=== PATIENT | female | born 1945 | race Caucasian/White ===

== ENCOUNTER 2020-06-11 09:03 | Inpatient (IN) | payer OTHER ==
[~2020-06-11] VITALS: Ht 152.4 cm; Wt 73.9 kg
[2020-06-11] VITALS (25 sets, daily range): BP systolic 122–215; BP diastolic 57–138
[2020-06-11 13:41] LABS: HEMATOCRIT 28.1 % (37.0-47.0); HEMOGLOBIN 9.8 gm/dL (12.0-15.0); MCH 31.6 pg (26.0-34.0); MCHC 34.7 g/dL (28.0-37.0); MCV 90.8 fL (80.0-100.0); RBC 3.09 mil/uL (4.20-5.00); RDW 14.4 % (10.5-14.5); WBC 7.5 thou/uL (4.0-11.0)
[2020-06-11] MEDS ORDERED: WARFARIN SODIUM2 MG PO (13:43)
[2020-06-11] MEDS ORDERED: CARVEDILOL12.5 MG PO (13:44)
[2020-06-11] MEDS ORDERED: CLONIDINE HCL0.1 MG PO (13:46)
[2020-06-11] MEDS ORDERED: ROSUVASTATIN CA20 MG PO (13:47)
[2020-06-11] MEDS ORDERED: IRON325 PO (13:49)
[2020-06-11 13:55] LABS: INR 1.43; PROTIME 15.3 Seconds (9.3-11.4)
[2020-06-11 13:56] LABS: ALBUMIN 2.2 g/dL (3.4-5.0); CALCIUM 7.6 mg/dL (8.5-10.1); CREATININE 1.1 mg/dL (0.6-1.0); POTASSIUM 3.3 mmol/L (3.5-5.1); TOTAL BILIRUBIN 0.6 mg/dL (0.2-1.0)
--- NOTE | 2020-06-11 15:20 | NUR ---
PATIENT ADMIT AT 1145 VIA EMS FROM [facility]. LARGE BLOODY STOOL ON ARRIVIAL. NO WOUNDS PRESENT ON ADMISSION. NO BELONGINGS BROUGHT WITH PATIENT. PATIENT ALERT AND ORIENTED. FAMILY AT BEDSIDE. SURGERY AND GI CONSULTED AND AT BEDSIDE. PATIENT CONTINUING TO HAVE FREQUENT BLOODY STOOLS. PLANNING FOR EDG TODAY. PATIENT HYPERTENSIVE THROUGHOUT SHIFT. PRN MEDICATIONS GIVEN WITH IMPROVEMNT IN BLOOD PRESSURE.
[2020-06-11 19:42] LABS: HEMATOCRIT 23.6 % (37.0-47.0); HEMOGLOBIN 8.2 gm/dL (12.0-15.0)
[2020-06-12] VITALS (37 sets, daily range): BP systolic 72–150; BP diastolic 42–105
--- NOTE | 2020-06-12 05:46 | NUR ---
ASSESSMENT DOCUMENTED.PT BEEN RESTING IN NO ACUTE DISTRESS.A/OX4.VSS.ON RA W/O RESP DISTRESS.PT S/P COLONOSCOPY.PT WAS UNABLE TO VOID EVEN AFTER A COUPLE OF TRIALS TO SIT ON A BSC.BLADDER SCAN PER PROTOCOL,690CC OF URINE SHOWED ON BLADDER SCAN.CELLULAR BIOLOGIST NOTIFIED,ORDERS GIVEN TO INSERT AND CONTINUE W/FONTANEZ CATHETER, 625CC OF LIGHT YELLOW URINE OBTAINED UPON FONTANEZ INSERTION.PT TOLERATED THE PROCEDURE.PT HAD X2 SMALL AMOUNT OF BLOODY STOOL WITH COPIOUS AMOUNT OF CLOTS.PT DENIES PAIN OR ANY OTHER DISCOMFORT AT THIS TIME.PT TOLERATING CLEAR LIQUID DIET.NS INFUSING PER ORDERS.
[2020-06-12 06:42] LABS: BASOPHILS 0.9 % (0.0-2.0); HEMOGLOBIN 6.7 gm/dL (12.0-15.0)
[2020-06-12 06:45] LABS: ABSOLUTE NEUTROPHILS 5.3 thou/uL (1.4-8.2); EOSINOPHILS 4.7 % (0.0-3.0); LYMPHOCYTES 18.5 % (24.0-44.0); MCH 31.9 pg (26.0-34.0); MCV 91.3 fL (80.0-100.0); MONOCYTES 7.6 % (1.0-8.0); PLATELET COUNT 153 thou/uL (150-400); POLYS 68.3 % (36.0-66.0); RDW 14.1 % (10.5-14.5); WBC 7.7 thou/uL (4.0-11.0)
[2020-06-12 06:50] LABS: HEMATOCRIT 19.2 % (37.0-47.0)
[2020-06-12 06:55] LABS: CALCIUM 7.4 mg/dL (8.5-10.1)
[2020-06-12 06:58] LABS: POTASSIUM 2.8 mmol/L (3.5-5.1)
[2020-06-12 07:49] LABS: ANISOCYTOSIS 1+; PLATELET ESTIMATE NORMAL
--- NOTE | 2020-06-12 08:47 | NUR ---
ASSUMED CARE OF PT AT 0700. PT SLEEPING EASILY AROUSABLE. ALERT AND ORIENTED TO PERSON, PLACE AND SITUATION. DR SHELDON PAGED AT 726, 744 THEN CRYPTO TEXTED BY MANAGER QUANTITATIVE REGARDING LOW HGB, ELECTROLITE IMBALANCES AND NEED FOR BETTER IV ACCESS. ORDERS GIVEN AT THAT TIME. WILL CONTINUE TO MONITOR.
--- NOTE | 2020-06-12 11:04 | NUR ---
VAT CONSULTED FOR PICC LINE. DISCUSSED BENEFITS AND RISKS WITH PT, VERBALIZED UNDERSTANDING. PT'S LABS,HX,ORDER AND CONSENT VERIFIED. OMI WHITEHEADCHEL WAS WIDELY PATENET WITH USG. 5FR TL POWER PICC TRIMMED TO 39CM INAERTED TO 0CM WITH PEAKED P-WAVES ON 3CG FOR CONFIRMATION. PICC RELEASED FOR IMMEDIATE USE PER PROTOCOL TO BETY SERRANO. PT TOLERATED WELL
--- NOTE | 2020-06-12 12:17 | NUR ---
ASSUMED CARE OF PT AT 0700. PT ALERT AND ORIENTED X4. PER PREVIOUS SHIFT RN PT HAD A TOTAL OF 3 DARK RED STOOLS. DURING THE NIGHT. DR SHELDON WAS PAGED AT [address] SHELDON WAS MESSAGED BY CRIPTO TEXT. ORDERS FOR A PRBCs, CENTRAL LINE, AND ELECTROLYTE REPLACEMENT WERE GIVEN. DR SHELDON ALSO ORDERED A GI NUC/MED STUDY FOR THE BLEEDING. STUDY WAS NOT PERFORMED DR CHAVEZ CAME TO TALK TO PT OF DOING A SUBTOTAL COLECTOMY AT 1130. PT WAS TAKEN TO OR AT 1200.
--- NOTE | 2020-06-12 22:06 | NUR ---
PT A/OX4.VSS.PT ASSISTED UP TO THE CHAIR ,S/P SUBTOTAL COLECTOMY W/NEW ILEOSTOMY.PT REPORTS MODERATE DISTRESS/PAIN FROM THE SURGICAL SITE THAT IS CONTROLLED WITH PAIN MEDS PER ORDERS.DENIES NAUSEA.DENIES PASSING GAS.TOLERATING ICE CHIPS.SURGICAL INCISION DRESSING CDI.ILEOSTOMY WITH MILD SEROSANGUIOUS DRAINAGE.FONTANEZ DD.NO FURTHER CONCERNS VOICED AT THIS TIME.
[2020-06-13] VITALS (24 sets, daily range): BP systolic 76–147; BP diastolic 45–76
[2020-06-13 08:43] LABS: HEMATOCRIT 24.7 % (37.0-47.0); HEMOGLOBIN 8.3 gm/dL (12.0-15.0); MCHC 33.5 g/dL (28.0-37.0); MCV 92.4 fL (80.0-100.0); RBC 2.67 mil/uL (4.20-5.00); RDW 15.1 % (10.5-14.5)
[2020-06-13 08:49] LABS: CALCIUM 7.6 mg/dL (8.5-10.1); CREATININE 1.7 mg/dL (0.6-1.0); POTASSIUM 4.9 mmol/L (3.5-5.1)
--- NOTE | 2020-06-13 09:02 | NUR ---
ASSUMED CARE OF PT AT 0700, PT IS ONLY COMPLAINING OF PAIN WHEN SHE MOVES. SHE STATES THAT OVERALL SHE IS FEELING BETTER. GI DOC WAS AT BEDSIDE PER PATIENT AND TOLD HER NOT TO EAT OR DRINK AND TO ONLY HAVE WATER UNTIL SURGERY CLEARS HER TO EAT. IT WAS SURGERY THAT PUT IN THE DIETARY ORDER SO WE WILL CHECK WITH THEM WHEN THEY ROUND.
--- NOTE | 2020-06-13 09:39 | NUR ---
PAGED DR. CHAVEZ TO SEE IF PT CAN EAT AND SEE IF SHE CAN MOVE OUT OF THE UNIT. CALL PLACED AT [phone]
--- NOTE | 2020-06-13 15:43 | NUR ---
ASSUMED CARE OF PATIENT UPON TRANSFER TO UNIT. FAMILY AT BEDSIDE. PATIENT WITH A PICC LINE IN THE RIGHT UPPER ARM. RIGHT UPPER ARM NOTED TO BE SWOLLEN AND RED, WITH BRUISING NOTED THROUGHOUT THE ENTIRE ARM. PHYSICIAN NOTIFIED, ULTRASOUND ORDERED. HOLDING IV FLUIDS AT THIS TIME UNTIL ULTRASOUND RESULTS. PATIENT WITH A FONTANEZ CATHETER AND A ILEOSTOMY.
--- NOTE | 2020-06-14 06:00 | NUR ---
Pt. rested quietly at intervals during the night when checked on during frequent rounds. Zofran ivp given for c/o nausea with little relief (see emar). Eleazar CLERICAL CLERK called during the shift and new order for compazine (see CPOE). Compazine given (see emar) with relief of nausea. Left arm bruised and swollen and elevated up on pillow. No return call from the iv team this shift and day nurse to call. Ileostomy has small amount of liquid dark brown stool present. Pt. offers no c/o pain. Bed alarm is on.
[2020-06-14 09:00] VITALS: BP 178/70
[2020-06-14 10:47] LABS: HEMATOCRIT 22.3 % (37.0-47.0); HEMOGLOBIN 7.5 gm/dL (12.0-15.0); MCH 31.4 pg (26.0-34.0); MCHC 33.6 g/dL (28.0-37.0); MCV 93.5 fL (80.0-100.0); RBC 2.39 mil/uL (4.20-5.00); RDW 15.9 % (10.5-14.5); WBC 11.3 thou/uL (4.0-11.0)
[2020-06-14 11:02] LABS: CALCIUM 7.9 mg/dL (8.5-10.1); CREATININE 1.9 mg/dL (0.6-1.0); POTASSIUM 4.8 mmol/L (3.5-5.1)
--- NOTE | 2020-06-14 14:30 | NUR ---
PT ADMITTED RELATED TO GI BLEED. CM REVIEWED CHART AND SPOKE WITH CARE TEAM. CM MET WITH PT AT BEDSIDE THIS DAY. PT INDICATED THAT SHE RESIDES IN A [facility]. 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 PT INDICATED THAT HE PCP IS DR. JOLYNN ALVAREZ AT [facility]. PT INDICATED NO HH OR SKILLED HX. PT INDICATED SHE PLANS TO RETURN HOME ONCE MEDICALLY STABLE. CM TO FOLLOW INDICATED WITH DC PLANNING. PT HAD SUBTOTAL COLECTOMY AND HAS NEW OSTOMY. PT INDICATED SHE WANTS TO LEARN TO MANAGE IT AND FEELS CONFIDENT THAT SHE CAN DO SO. CM FOLLOWING REGARDING DC NEEDS.
[2020-06-14 15:32] VITALS: BP 107/66
--- NOTE | 2020-06-14 15:51 | NUR ---
ASSUMED CARE AT 0700 THIS MORNING. PT WAS ADMITTED FOR GI BLEED. PT IS A/OX4 AND STATED SHE IS FEELING BETTER, SKIN W/D/P AND INTACT. NO TENTING NOTED, CR<3SEC, LUNGS CLEAR ALL LYMAN, DISTAL PULSES 2+ X4, ABD SOFT NONTENDER, IV IN LEFT WRIST. PT HAS A PICC BUT HAD A DVT AND UNUSABLE. PAGED IV TEAM TO SEE IF IT CAN BE PATENT AGAIN, ASSESSMENT OTHERWISE UNREMARKABLE. CALL LIGHT AND OTHER NEEDS PLACED WITHIN REACH.
[2020-06-14 15:58] LABS: INR 1.62; PROTIME 17.3 Seconds (9.3-11.4)
[2020-06-15 01:39] LABS: HEMOGLOBIN 6.5 gm/dL (12.0-15.0)
[2020-06-15 01:42] LABS: HEMATOCRIT 19.3 % (37.0-47.0)
[2020-06-15 01:46] LABS: CALCIUM 7.8 mg/dL (8.5-10.1); CREATININE 1.6 mg/dL (0.6-1.0); POTASSIUM 4.1 mmol/L (3.5-5.1)
--- NOTE | 2020-06-15 04:55 | NUR ---
Pt. rested quietly at intervals during the night when checked on during frequent rounds. She c/o abdominal pain and ivp pain med given (see emar) with some relief noted. Bed alarm is on.
[2020-06-15 08:00] VITALS: BP 149/88
[2020-06-15 11:26] VITALS: BP 177/98; BP 178/104
[2020-06-15 13:00] VITALS: BP 159/103
--- NOTE | 2020-06-15 14:48 | NUR ---
PT GETTING BLOOD TODAY PT VARIENCED. AWAITING THERAPY EVALS. PT HAD INDICATED DESIRE TO RETURN TO HER [facility] ONCE MEDICALLY STABLE. CM FOLLOWING REGARDING DC PLANNING NEEDS.
--- NOTE | 2020-06-15 17:07 | PATH ---
[facility] [place] [address] PATHOLOGY RPT PROCEDURE Name: SHADI WRIGHT Room #: 464-P ADM IN M.R.#: [id number] Admission: 06/11/20 Date of : 43 Discharge: Report #: [id number] Path Case #: [id number] [facility] Accession Number: [id number] . 01 Material submitted: . colon - SUBTOTAL COLECTOMY . 01 Clinical history: . DIVERTICUALR BLEED . 02 Diagnosis: Terminal ileum and large intestine, subtotal colectomy: - INVASIVE MODERATELY-DIFFERENTIATED COLONIC ADENOCARCINOMA, MEASURING 2.0 CM IN GREATEST DIMENSION AND INVADING INTO MUSCULARIS PROPRIA. - Multiple tubular adenomas present within the background; negative for high grade dysplasia. - Multiple hyperplastic polyps; negative for dysplasia. - Ischemic colitis forming a stricture measuring 1.5 cm in greatest dimension and within 5.0 cm of distal margin. - Extensive diverticulosis as well as diverticulitis. - 14 reactive lymph nodes; negative for malignancy (0/14). . (IUV:mml; 06/15/2020) . . . Surgical Pathology Cancer Case Summary . Protocol posting date: March 2019 . COLON AND RECTUM: Resection, Including Transanal Disk Excision of Rectal Neoplasms . Procedure ___ Subtotal colectomy . Tumor Site ___ Descending colon . Tumor Size Greatest dimension (centimeters): 2.0 cm . Macroscopic Tumor Perforation ___ Not identified . Histologic Type ___ Adenocarcinoma . [facility] [address] [place] [address] PATHOLOGY RPT PROCEDURE Name: SHADI WRIGHT Room #: 464-P ADM IN M.R.#: [id number] Admission: 06/11/20 Date of : 43 Discharge: Report #: [id number] Path Case #: [id number] Histologic Grade ___ G2: Moderately differentiated . Tumor Extension ___ Tumor invades muscularis propria . Margins ___ All margins are uninvolved by invasive carcinoma, high-grade dysplasia, intramucosal adenocarcinoma, and adenoma Margins examined: Proximal, Distal and Mesenteric Distance of invasive carcinoma from closest margin: 1.3 cm Specify closest margin: Distal mucosal margin . Treatment Effect ___ No known presurgical therapy . Lymphovascular Invasion ___ Not identified . Perineural Invasion ___ Not identified . Tumor Deposits ___ Not identified . Regional Lymph Nodes . Number of Lymph Nodes Involved: 0 . Number of Lymph Nodes Examined: 14 . Pathologic Stage Classification (pTNM, AJCC 8th Edition) Note: Reporting of pT, pN, and (when applicable) pM categories is based on information available to the pathologist at the time the report is issued. . . Primary Tumor (pT) ___ pT2: Tumor invades the muscularis propria . Regional Lymph Nodes (pN) ___ pN0: No regional lymph node metastasis . Distant Metastasis (pM) (required only if confirmed pathologically in this case) ___ pMx: Not known . Additional Pathologic Findings ___ Adenoma(s) [facility] [address] [place] [address] PATHOLOGY RPT PROCEDURE Name: SHADI WRIGHT Room #: 464-P [facility] IN .R.#: [id number] Admission: 06/11/20 Date of : 43 Discharge: Report #: [id number] Path Case #: [id number] ___ Diverticulosis QTP 06/15/2020 1556 Local . 02 Comment: The findings of this case are conveyed to Dr. Robinson Brantley at approximately 3:11 p.m. on 06/15/2020. . (IUV:mml; 06/15/2020) . 02 Electronically signed: . Nadira Kirby MD, Pathologist NPI- [id number] . 01 Gross description: . The specimen is received in formalin, labeled "subtotal colectomy" and consist of an extended right hemicolectomy specimen received as terminal ileum, cecum without appendix, ascending colon, transverse colon and possible proximal sigmoid. The specimen is remarkable for areas of dilatation and stricture with blood clot filling the lumen. In addition, the large bowel has alternate areas of polypoid masses and outpouchings consistent with diverticula. The largest polypoid masses are distal corresponding to Black ink on the serosa. Perforations or ruptured diverticula are not observed The colon measures 11 cm from ileal margin to ileocecal valve, 30 cm from ileocecal valve to proximal transverse colon and 75 cm from proximal transverse colon to distal margin. The circumferences are as follows: 3 cm at terminal ileum, 5 cm at ileocecal valve, 8.5 cm at cecum, 7 cm at ascending/transverse colons and 4.5 cm at distal margin. Proximal and distal margins are inked black. The radial soft tissue margin corresponding to the two (2) largest polypoid masses is inked yellow. The corresponding radial soft margin to the two largest lesions, 5 cm away, is shaved and submitted in cassette A3. There are multiple palpable masses, ranging from 0.3 to 2 cm located in the large bowel. The two largest masses come to within 1.3 cm and 5 cm of the distal margin. Each mass grossly distorts the muscularis layer without extension into the pericolic fat. With relationship to the proximal ileal margin, the smaller masses are noted within 13 cm. The mucosa of the terminal ileum, ileocecal valve and cecum is focally congested without diverticula, perforations or lesions. The wall thickness away from the masses is within normal limits. Multiple soft pink-zambrano possible lymph nodes ranging from 0.3-0.7 cm are identified. Packing Line Operator sections are submitted in 25 cassettes as follows: A1 Terminal ileal margin, perpendicular section A2 Distal margin, perpendicular section [address] [address] PATHOLOGY RPT PROCEDURE Name: SHADI WRIGHT Room #: 464-P ADM IN M.R.#: [id number] Admission: 06/11/20 Date of : 43 Discharge: Report #: [id number] Path Case #: [id number] A3 Shaved radial soft tissue margin A4 Ileum and ICV A5 Cecum A6-A9 Entire Mass within 1.3cm of the distal margin (2 cm maximum dimension) A10-A13 Entire Mass within 5 cm of the distal margin (1.5 cm maximum dimension) A14-A17 Additional smaller masses, diverticula A18-A25 Lymph nodes CHAIM/CHAIM 06/14/2020 1934 Local . 02 Pathologist provided ICD-10: C18.6, D12.4, K63.5, K52.9, K57.90, K57.92 . 02 CPT . 418463 Specimen Comment: A courtesy copy of this report has been sent to [phone] Specimen Comment: Report sent to Performed at: [address] [facility], [place] [id number] MD Ike Santana MD Phone: [phone] Performed at: [address] [facility] [id number] MD Nadira Kirby MD Phone: [phone]
[2020-06-15 19:00] LABS: HEMATOCRIT 31.7 % (37.0-47.0); HEMOGLOBIN 10.8 gm/dL (12.0-15.0)
--- NOTE | 2020-06-15 19:17 | NUR ---
Assumed pt care at 7am.Assessment completed.vss but elevated bp noted.Am meds given as ordered and well tolerated.Dr Abrams and Abhijeet here order noted. 1 unit prbc given today. Picc line dc'd and piv placed by iv team.Medicated pt with both pain and antinausea med as requested by pt with releif.Family here to visit updates given.Fall bundle in place.Report off to fariba mondragon.
[2020-06-15 19:45] VITALS: BP 152/94
[2020-06-16 05:54] LABS: ALBUMIN 1.7 g/dL (3.4-5.0); CALCIUM 7.3 mg/dL (8.5-10.1); CREATININE 1.4 mg/dL (0.6-1.0); PHOSPHORUS 3.7 mg/dL (2.5-4.9); POTASSIUM 3.9 mmol/L (3.5-5.1)
[2020-06-16 07:41] VITALS: BP 152/78
--- NOTE | 2020-06-16 08:10 | NUR ---
Pt. c/o nausea, but no emesis. She has been given antinausea meds (see emar) with some relief noted. Bed alarm is on.
--- NOTE | 2020-06-16 09:12 | NUR ---
OSTOMY CARE; AWAKE, ALERT, VERY PLEASANT, POUCH INTACT, NO LEAKAGE, LOOSE BILISH STOOL NOTED, QUESTIONS ANSWERED REGARDING OSTOMY CARE/MANAGEMENT, VERY RECEPTIVE TO EDUCATION, STOMA PINKISH RED VIABLE BUDDED, INFO AND SUPPLIES LEFT AT BS, ENCOURAGED TO PARTICIPATE IN OSTOMY CARE, WILL CONT TO FOLLOW RECOMMENDATIONS; RADHA 2 PIECE APPLIANCE, CHANGE Q 3-5 DAYS AND PRN, EMPTY PRN DIALYSIS NURSE AWARE
[2020-06-16 15:15] VITALS: BP 127/48
--- NOTE | 2020-06-16 16:40 | NUR ---
CM PROVIDED PT WITH SNF LIST FOR REVIEW FOR POST ACUTE CARE STAY.
--- NOTE | 2020-06-16 16:51 | NUR ---
ASSUMED PT CARE AROUND 0715. PT ALERT X ORIENTED X 4 ON ROOM AIR. IV LF UA, SALINE LOCKED.HAS ILEOSTOMY AND FONTANEZ CATHETER.UP WITH 1 X PERSON ASSIST. PT HAS A MIDLINE INCISSION WITH MART. TELE PT WITH SINUS RYTHM. FALL PRECAUTION IN PLACE. CALL LIGHT IN REACH. WILL CALL APPROP. WILL CONTINUE TO MONITOR. STRICT I &O MONITOR.
[2020-06-16 20:09] VITALS: BP 145/73
--- NOTE | 2020-06-17 03:18 | NUR ---
ASSESSED AT START OF SHIFT, PT A&OX4 EVENING MEDS GIVEN AND PT JOSE ALFREDO IT WELL. IV INTACT AND ABX INFUSING. ILEOSTOMY INTACT AND WITH GREEN COLOR OUTPUT. BAG CHANGED AND CARE PROVIDED. STRICT I &O ON ILEOSTOMY Q4 HRS. PT ON RA SATS GOOD. TYELENOL GIVEN FOR PAIN. ABD INCISION INTACT DRESSING CAHNGED. PT DENIES N/V. FALL PREC IN PLACE AND CALL LIGHT AT REACH WILL CONT TO MONITOR.
[2020-06-17 08:25] VITALS: BP 134/69
[2020-06-17 11:26] LABS: HEMATOCRIT 26.9 % (37.0-47.0); HEMOGLOBIN 9.2 gm/dL (12.0-15.0); MCH 31.4 pg (26.0-34.0); MCHC 34.3 g/dL (28.0-37.0); MCV 91.5 fL (80.0-100.0); RBC 2.93 mil/uL (4.20-5.00); RDW 15.2 % (10.5-14.5); WBC 6.5 thou/uL (4.0-11.0)
[2020-06-17 11:39] LABS: ALBUMIN 1.7 g/dL (3.4-5.0); CALCIUM 7.8 mg/dL (8.5-10.1); CREATININE 1.6 mg/dL (0.6-1.0); PHOSPHORUS 3.2 mg/dL (2.5-4.9); POTASSIUM 3.3 mmol/L (3.5-5.1)
--- NOTE | 2020-06-17 16:23 | NUR ---
TORO MET WITH PT THIS DAM. SHE [facility]. REFERRAL SENT. CM SPOKE WITH FACILITY AND THEY ARE CRUZ TO ACCEPT AND WILL SUBMIT FOR [employer] AUTH THIS EVENING. CM SENT EMAIL WELL. CM FOLLOWING REGARDING DC PLANNING.
[2020-06-17 16:25] VITALS: BP 140/65
--- NOTE | 2020-06-17 17:44 | NUR ---
PT CARE ASSUMED AT 0700. ASSESSMENTS CHARTED. MEDICATIONS CHARTED. DREW IV. SINUS RHYTHM. ILEOSTOMY. FONTANEZ. SCHEDULED TYLENOL. ABD SURGICAL SITE. COVID TAKEN AND IN LAB PRIOR TO 1400. I/O Q4.
[2020-06-17 21:13] VITALS: BP 140/104
--- NOTE | 2020-06-18 02:48 | NUR ---
ASSUMED CARE OF PT AT SHIFT CHANGE. PT IS AOX4 AND LETS NEEDS BE KNOWN. FALL PRECAUTION IN PLACE. PT DENIED PAIN, NAUSE OR SOA. ILEOSTOMY HAS FAIR AMOUNT OF OUTPUT. SURGICAL DRESSING IS C/D/I. ASSESSMENT CHARTED. PT RUNS SR ON TELE. PT WAS ABLE TO GET COMFORTABLE AND SLEEP PART OF THE SHIFT. VSS AND NO S/S OF ACUTE DISTRESS. WILL CONTINUE TO MONITOR.
[2020-06-18 07:51] LABS: HEMOGLOBIN 8.9 gm/dL (12.0-15.0); MCH 31.2 pg (26.0-34.0); MCHC 34.1 g/dL (28.0-37.0); MCV 91.5 fL (80.0-100.0); RBC 2.84 mil/uL (4.20-5.00); RDW 15.3 % (10.5-14.5); WBC 5.2 thou/uL (4.0-11.0)
[2020-06-18 07:57] LABS: ALBUMIN 1.8 g/dL (3.4-5.0); CREATININE 1.5 mg/dL (0.6-1.0); PHOSPHORUS 2.9 mg/dL (2.6-4.7); POTASSIUM 3.3 mmol/L (3.5-5.1)
[2020-06-18 08:14] VITALS: BP 152/80
--- NOTE | 2020-06-18 09:06 | NUR ---
OSTOMY CARE; AWAKE, ALERT, COOPERATIVE, VERY PLEASANT, POUCH CHANGED USING 2 PIECE RADHA CUT TO FIT APPLIANCE, STOMA PINK VIABLE BUDDED W/ LIQ BILISH STOOL, PERISTOMAL SKIN INTACT, VERY RECEPTIVE TO OSTOMY EDUCATION, ENCOURAGED TO PARTICIPATE IN OSTOMY CARE, SUPPLIES AND INFO AT BS, SECURE START KIT ORDERED FOR PT AND TO BE SENT TO HOME, WILL CONT TO FOLLOW RECOMMENDATIONS; CHANGE POUCH Q 3-5 DAYS AND PRN, EMPTY PRN PORT STEWARD AWARE
--- NOTE | 2020-06-18 09:13 | NUR ---
WOUND CARE; AWAKE, ALERT, COOPERATIVE, MID LINE ABD INCISION INTACT, WELL APPROXIMATED, MART PRESENT, DRSG CHANGED WHEN OSTOMY POUCH CHANGED USING ISLAND TELFA DRSG, NO S/S INFECTION, NO DRAINAGE, HEALING BURR FILER AWARE
[2020-06-18 11:52] VITALS: BP 183/95
--- NOTE | 2020-06-18 15:51 | NUR ---
AWAITING AUTH FOR PT TO DC TO [facility]. IF AUTH RECEIVED CALL FAX .
[2020-06-18 16:31] VITALS: BP 142/73
[2020-06-18 19:51] VITALS: BP 140/70
--- NOTE | 2020-06-18 20:02 | NUR ---
Assumed pt care this am, VS stabel. Ostomy care done by ostomy nurse, bag drained several times though out the shift to educate the pt on ostomy care. FC in place drainig yellow urine. Diet and medications are tolerated well. poc followed with no signs or verbalizations of distress noted. Strict I & O documented. Endorsed to the night nurse.
--- NOTE | 2020-06-19 03:19 | NUR ---
ASSUMED CARE OF PT AT 1900. PT IS A/O X4 AND IS PLEASANT AND COOPERATIVE. GETS UP WITH ASSISTANCE USING WALKER AND GB. ROOM AIR. SR ON THE MONITOR. COLOSTOMY IN PLACE DRAINING GREEN LIQUID STOOL. PT HELPED WITH EMPTYING. STATED SHE WAS HAPPY TO LEARN HOW. FONTANEZ IN PLACE AND DRAINING YELLOW URINE. MIDLINE INCISION DRSNG IS C/D/I. RIGHT ARM IS NOTED TO HAVE EDEMA/AND BRUISING. ELEVATED ON PILLOW. FALL PRECAUTIONS IN PLACE, CALL LIGHT IS WITHIN REACH. CALLS OUT APPROPRIATELY.
[2020-06-19 07:04] VITALS: BP 172/85
[2020-06-19 10:01] VITALS: BP 119/71
--- NOTE | 2020-06-19 12:14 | NUR ---
Received awake on bed. Due medications given as prescribed, able to swallow meds w/o difficulty. On room air. Vital signs stable. On telemetry; no complains and signs of chest pain, crushing sensation and heaviness. Assisted in ADLs. On regular diet- tolerating well; no nausea, no vomiting and no abdominal pain noted. With colostomy in place- output measured and recorded accordingly; health teaching given re: colostomy care at home. With flowers in place- draining well; output measured and recorded accordingly- with orders to d/c from Dr Abrams- pt informed. With abdominal midline incsion- dressing C/D/I. With L UA- SL. R FA still edematous- kept elevated. Still a/w insurance authorization for placement. To continue monitoring patient. No complains of pain made during assessment.
[2020-06-19 15:49] VITALS: BP 147/78
[2020-06-19 20:52] VITALS: BP 143/83
--- NOTE | 2020-06-20 04:51 | NUR ---
Assumed pt care at 1900. A/OX4,very pleasant. VSS.Denies pain on assessment. Up with AX1,RW/GB. Voiding w/o problems, Ileostomy in placce with dark green moderate output. Mid abd incision intact with lolis covered in [facility] dsg. Redness/edema noted on right arm r/t DVR,elevated on a pillow. SR on telemetry. Fall precautions in place,reminded to call before getting out of the bed and does so. Will continue to monitor pt.
[2020-06-20 05:09] LABS: CALCIUM 8.2 mg/dL (8.5-10.1); CREATININE 1.1 mg/dL (0.6-1.0); MAGNESIUM 1.7 mg/dL (1.8-2.4); POTASSIUM 3.1 mmol/L (3.5-5.1)
[2020-06-20 07:16] VITALS: BP 154/80
--- NOTE | 2020-06-20 14:10 | NUR ---
ASSUMED PT CARE THIS AM. PT IS ALERT & ORIENTED X4. PT HAS IV SITE ON L UA SALINE LOCKED. PT HAS ILEOSTOMY ON RLQ. PT NO C/O OF PAIN, NAUSEA AND VOMITING. PT TOLERATED MED WELL. PT ON THE BED, BED ON THE LOWEST POSITION, SIDE RAILS UP, CALL LIGHT WITHIN REACH. WILL CONTINUE TO MONITOR PT. FOLLOW POC.
[2020-06-20 17:10] VITALS: BP 151/92
[2020-06-20 19:51] VITALS: BP 130/54
--- NOTE | 2020-06-21 02:02 | NUR ---
ASSUMED CARE OF PT AT SHIFT CHANGE. PT IS AOX4 AND LETS NEEDS BE KNOWN. FALL PRECAUTION IN PLACE. PT DENIED PAIN, NAUSEA OR SOA. ASSESSMENT CHARTED. ABDOMINAL MIDLINE DRESING IS C/D/I. ILEOSTOMY IS DRAINING ADEQUATELY. PT TOOK ALL MEDS WHOLE WITH WATER. PT RAN SR ON TELE. PT WAS ABLE TO GET COMFORTABLE AND SLEEP PART OF THE SHIFT. VSS AND NO S/S OF ACUTE DISTRESS. WILL CONTINUE TO MONITOR FOR CHANGES.
[2020-06-21 05:37] LABS: HEMATOCRIT 26.3 % (37.0-47.0); HEMOGLOBIN 8.9 gm/dL (12.0-15.0); MCH 30.9 pg (26.0-34.0); MCHC 33.8 g/dL (28.0-37.0); MCV 91.3 fL (80.0-100.0); RBC 2.88 mil/uL (4.20-5.00); RDW 15.8 % (10.5-14.5); WBC 5.1 thou/uL (4.0-11.0)
[2020-06-21 05:44] LABS: CALCIUM 8.2 mg/dL (8.5-10.1); CREATININE 1.1 mg/dL (0.6-1.0); POTASSIUM 3.6 mmol/L (3.5-5.1)
[2020-06-21 07:50] VITALS: BP 142/94
--- NOTE | 2020-06-21 08:57 | NUR ---
OSTOMY/WOUND CARE; AWAKE, ALERT, COOPERATIVE, VERY PLEASANT, POUCH CHANGED USING 2 PIECE SYSTEM RADHA CUT TO FIT, STOMA RED, VIABLE, BUDDED W/ LOOSE BROWNISH GREEN STOOL, PERISTOMAL SKIN INTACT, VERY RECEPTIVE TO EDUCATION, ABLE TO EMPTY POUCH W/ SOME ASSIST, NEEDS ASSIST W/ CUTTING WAFER AND APPLYING POUCH, MID LINE ABD INCISION INTACT, HEALING, MART REMAIN, NO S/S INFECTION, [facility] DRSG REAPPLIED, SUPPLIES AND INFO AT BS, WILL CONT TO FOLLOW RECOMMENDATIONS; CHANGE POUCH Q 3-5 DAYS AND PRN, EMTPY PRN, CONSULT SURGEON REGARDING STAPLE REMOVAL RAIL TRACK LAYER AWARE
[2020-06-21 11:43] VITALS: BP 142/94
--- NOTE | 2020-06-21 11:47 | NUR ---
CARE TEAM INDICATED THAT PT IS MEDICALLY STABLE TO DC HOME THIS DAY WITH SERVICES. PT IS AWARE AND AGREEABLE THAT SHE NO LONGER NEEDS SKILLED POST ACUTE CARE STAY [facility]. PT INDICATED NO PREFERANCE FOR HH PROVIDER. REFERRAL SENT TO [facility]. THEY CAN ACCEPT PT UPON DC. ORDERS TO BE FAXED. PT'S SON TO PROVIDE TRANSPORT HOME THIS DAY. NO OTHER CM INTERVETNION INDICATED. CASE CLOSED.
--- NOTE | 2020-06-21 12:32 | NUR ---
Assumed pt care this am, Vs stable. Pt was able to walk the halls with PT. Ileostomy on the RLQ, draininh greenisg liquid. Diet and medications are well tolerated. Mid line incision c/d/i. Bruising on upper extremities present. POC followed with no signs or verbalizations of disttress noted. DC instructions given to the pt, awaiting for son for flower picker.
--- NOTE | 2020-07-01 08:42 | O ---
[facility] [place] [address] OPERATIVE REPORT Name: SHADI WRIGHT Room #: 464-P [facility] IN M.R.#: [id number] Admission: 06/11/20 Attend Phys: James Dickinson MD Discharge: 06/21/20 Date of : 43 Report #: [id number] THIS REPORT FOR: cc: FAM - Family physician unknown FAM - Family physician unknown Robinson Brantley MD ~ DATE OF SERVICE: 06/12/2020 PREOPERATIVE DIAGNOSIS: Diverticular bleed. POSTOPERATIVE DIAGNOSIS: Diverticular bleed. OPERATION: Subtotal colectomy with end ileostomy. SURGEON: Robinson Brantley MD ANESTHESIA: General. ESTIMATED BLOOD LOSS: Minimal. SPECIMEN: Subtotal colectomy. DESCRIPTION OF PROCEDURE: After informed consent was obtained, the patient was brought to the operating room and placed supine. SCDs were placed and working, preoperative antibiotics were administered, general anesthesia was induced. A Ferreira catheter was placed. The abdomen was prepped and draped in the usual sterile fashion. Midline laparotomy incision was made from approximately 2 cm above the umbilicus down to the pubis. The fascia was incised in the midline and a self-retaining retractor was placed. I examined the abdomen. The small bowel appeared normal. The colon was then examined. I first examined the sigmoid colon. It was grasped and retracted medially. The white line of Toldt was incised and this allowed for medial mobilization of the sigmoid and left colon. I then began by dissecting away the left colon all the way up to the splenic flexure. The splenocolic ligament was incised with electrocautery and LigaSure device. The splenic flexure was mobilized by incising the splenocolic ligament and mobilizing the splenic flexure medially. I then went to the right colon. The terminal ileum was then transected approximately 10 cm from the cecum. Again, the colon was grasped and retracted medially and the white line of Toldt was incised. The lateral attachments to the right colon were then taken down up to the hepatic flexure. I then ligated the mesentery of the transverse colon using the LigaSure device. The gastrocolic omentum was incised with the LigaSure device as well. Branches of the middle colic and right colic artery were ligated using the LigaSure and small bleeding vessels were tied off with 3-0 silk suture. I then was able to mobilize the colon all the way to the sigmoid after the mesentery had been ligated. I stayed in the midline and the [address] [address] OPERATIVE REPORT Name: SHADI WRIGHT Room #: 464-P [facility] IN M.R.#: [id number] Admission: 06/11/20 Attend Phys: James Dickinson MD Discharge: 06/21/20 Date of : 43 Report #: [id number] superior hemorrhoidal vessels were ligated using 3-0 silk sutures in a [id number] fashion to tie off the vessels. Dissection was undertaken and I could see the proximal and distal tattoos. The rectosigmoid was then transected just above the level of the distal tattoo. The specimen was then removed. An incision was made in the right lower quadrant of the abdomen and the fascia was incised and the ileum was then brought out through that hole. The abdomen was examined. There were no other abnormalities at this point. The fascia was then closed with #1 looped PDS. The skin was closed with lolis. Mell ileostomy was then fashioned using 4-0 Vicryl suture. Ostomy appliance was placed and sterile dressings were applied. COMPLICATIONS: None. DISPOSITION: The patient was taken to recovery in satisfactory condition. <ELECTRONICALLY SIGNED> By: Robinson Brantley MD 07/01/20 0842 [id number] Robinson Brantley MD /nt
== END 2020-06-21 14:45 | disposition home health service (06) | DRG 329 ==
LOC: 4W 09:03 → ICU 09:03 → 4W 06-13 14:37
PROVIDERS: Hospitalist; Internal Medicine Nephrology; Nurse Practitioner; Nurse Practitioner Family; Surgery; ADMIT Internal Medicine; ATTEND Internal Medicine
PROC: 0DDE8ZX Extraction of Large Intestine, Via Natural or Artificial Opening Endoscopic, Diagnostic (ICD-10-PCS; 2020-06-11)
PROC: 0D1B0Z4 Bypass Ileum to Cutaneous, Open Approach (ICD-10-PCS; principal; 2020-06-12)
PROC: 30233N1 Transfusion of Nonautologous Red Blood Cells into Peripheral Vein, Percutaneous Approach (ICD-10-PCS; principal; 2020-06-12)
PROC: 05HY33Z Insertion of Infusion Device into Upper Vein, Percutaneous Approach (ICD-10-PCS; principal; 2020-06-12)
PROC: B54MZZA Ultrasonography of Right Upper Extremity Veins, Guidance (ICD-10-PCS; principal; 2020-06-12)
PROC: 0DBE0ZZ Excision of Large Intestine, Open Approach (ICD-10-PCS; principal; 2020-06-12)
DX: C19 Malignant neoplasm of rectosigmoid junction (principal); G93.41 Metabolic encephalopathy; K57.31 Diverticulosis of large intestine without perforation or abscess with bleeding; N17.0 Acute kidney failure with tubular necrosis; R65.11 Systemic inflammatory response syndrome (SIRS) of non-infectious origin with acute organ dysfunction; K62.5 Hemorrhage of anus and rectum; E87.1 Hypo-osmolality and hyponatremia; D62 Acute posthemorrhagic anemia; K57.90 Diverticulosis of intestine, part unspecified, without perforation or abscess without bleeding; K63.5 Polyp of colon; D49.0 Neoplasm of unspecified behavior of digestive system; I12.9 Hypertensive chronic kidney disease with stage 1 through stage 4 chronic kidney disease, or unspecified chronic kidney disease; E78.5 Hyperlipidemia, unspecified; F17.210 Nicotine dependence, cigarettes, uncomplicated; I73.9 Peripheral vascular disease, unspecified; E87.6 Hypokalemia; D72.829 Elevated white blood cell count, unspecified; Y83.8 Other surgical procedures as the cause of abnormal reaction of the patient, or of later complication, without mention of misadventure at the time of the procedure; I71.4 Abdominal aortic aneurysm, without rupture; N18.30 Chronic kidney disease, stage 3 unspecified; Z66 Do not resuscitate; Z90.710 Acquired absence of both cervix and uterus; Z20.822 Contact with and (suspected) exposure to COVID-19; Z88.8 Allergy status to other drugs, medicaments and biological substances; Y92.89 Other specified places as the place of occurrence of the external cause; Z79.01 Long term (current) use of anticoagulants; Z79.899 Other long term (current) drug therapy; Z86.73 Personal history of transient ischemic attack (TIA), and cerebral infarction without residual deficits
CPT/HCPCS: 10045; 10047; 10204; 27000; 50093; 50101; 50290; 50386; 51331; 51412; 51708; 56526; 56527; 57092; 57103; 62110; 62900; 70005; 85076

== ENCOUNTER 2020-07-11 01:02 | Inpatient (IN) | payer OTHER ==
[~2020-07-11] VITALS: Ht 152.4 cm; Wt 65.1 kg
[~2020-07-11 01:02] MED LIST: CARVEDILOL12.5 MG PO; CLONIDINE HCL0.1 MG PO; IRON325 PO; ROSUVASTATIN CA20 MG PO; WARFARIN SODIUM2 MG PO
[2020-07-11 02:30] VITALS: BP 131/60
--- NOTE | 2020-07-11 03:00 | NUR ---
PT ARRIVED TO THE UNIT AT 0210 FROM [facility] ACCOMPANIED BY STAFF. PT IS ALERT AND ORIENT TIMES FOUR. VERY WEAK. DENIES NAUSEA, CP AND GENERALIZED PAIN. MEMORIAL COUNSELOR BARRETT SUBRAMANIAN AT THE BEDSIDE WITH ADMISSION ORDERS. SR PER MONITOR. COLOSTOMY NOTED TO BE INTACT WITH THIN LIQUID; GREENISH OUTPUT. STOMA RED WITH NO S/S OF INFECTION. FONTANEZ PATENT WITH LIGHT YELLOW URINE OUTPUT. WILL CONTINUE TO MONITOR.
[2020-07-11 04:10] LABS: CALCIUM 8.4 mg/dL (8.5-10.1)
[2020-07-11 04:18] LABS: TROPONIN-I 0.18 ng/mL (<0.06)
[2020-07-11 04:39] LABS: HEMATOCRIT 29.8 % (37.0-47.0); MCH 30.3 pg (26.0-34.0); MCHC 33.4 g/dL (28.0-37.0); MCV 90.9 fL (80.0-100.0); RBC 3.28 mil/uL (4.20-5.00); RDW 14.9 % (10.5-14.5); WBC 4.6 thou/uL (4.0-11.0)
[2020-07-11 07:07] VITALS: BP 113/54
--- NOTE | 2020-07-11 08:51 | NUR ---
EKG done, reported to Dr. Bello.
[2020-07-11 11:19] LABS: ICTOTEST (BILI CONFIRMATORY) Negative (Negative); URINE BILIRUBIN NEGATIVE (Negative); URINE BLOOD 2+ (Negative); URINE CLARITY CLEAR; URINE COLOR YELLOW; URINE GLUCOSE-RANDOM* NEGATIVE (Negative); URINE KETONES NEGATIVE (Negative); URINE LEUKOCYTES-REFLEX TRACE (Negative); URINE NITRITE-REFLEX NEGATIVE (Negative); URINE PROTEIN (DIPSTICK) NEGATIVE (Negative); URINE SPECIFIC GRAVITY >= 1.030 (1.005-1.035); URINE UROBILINOGEN 0.2 E.U./dl (0.2-1.0)
[2020-07-11 11:27] LABS: BACTERIA-REFLEX 1-9 Few /HPF (None Seen); CASTS None Seen /LPF (None Seen); CRYSTALS None Seen /LPF (None Seen); SQUAMOUS 0-3 Few /LPF (0-3); URINE RBC 3-10 Few /HPF (NONE SEEN); URINE WBC-REFLEX 0-5 Rare /HPF (0-5); YEAST-REFLEX Present (None Seen)
[2020-07-11 11:49] VITALS: BP 154/61
--- NOTE | 2020-07-11 12:27 | NUR ---
The staff texted Dr. Bello to clarify that if the patient is still on NPO, awaiting response.
[2020-07-11 15:07] VITALS: BP 164/73
--- NOTE | 2020-07-11 16:02 | NUR ---
Patient began with clear liquid, ate 80% of Jello, tolerated well, no n/v, no complaint of pain, will try to advance the diet when the patient is ready.
--- NOTE | 2020-07-11 16:12 | NUR ---
BP elevated, see the chart, talked to the patient and checked the chart, patient took BP medication at home, message sent to , awaiting response.
--- NOTE | 2020-07-11 17:20 | NUR ---
Patient output and intake is unbalanced, doctor Ace has been reported to. The patient voiced her concern why her left side was weak, the staff reported her concern to Dr. Bello.
[2020-07-11 19:23] VITALS: BP 153/69
[2020-07-12 03:28] VITALS: BP 129/59
[2020-07-12 03:39] LABS: HEMATOCRIT 26.2 % (37.0-47.0); HEMOGLOBIN 8.9 gm/dL (12.0-15.0); MCHC 33.8 g/dL (28.0-37.0); MCV 88.9 fL (80.0-100.0); RBC 2.95 mil/uL (4.20-5.00); RDW 14.4 % (10.5-14.5)
[2020-07-12 03:55] LABS: ALBUMIN 2.4 g/dL (3.4-5.0); PHOSPHORUS 3.8 mg/dL (2.6-4.7)
--- NOTE | 2020-07-12 04:17 | NUR ---
A/O X 4.DENIES PAIN.TYLENOL GIVEN FOR SLEEP PER PATIENT REQUEST.MONITOR SHOWS SR.POC CONTINUED.
[2020-07-12 04:19] LABS: CREATININE 3.3 mg/dL (0.6-1.0); POTASSIUM 3.4 mmol/L (3.5-5.1)
[2020-07-12 06:57] VITALS: BP 153/70
--- NOTE | 2020-07-12 08:33 | NUR ---
OSTOMY CARE; AWAKE, ALERT, COOPERATIVE, STATES SHE HAS BEEN DOING WELL W/ OSTOMY CARE AT HOME AND WITH ASSIST OF HOME HEALTH, DID NOT BRING SUPPLIES TO HOSP, POUCH ON X 5 DAYS, CHANGED USING 2 PIECE SYSTEM RADHA CUT TO FIT, STOMA BUDDED, RED, VIABLE W/ LIQ BROWN STOOL NOTED, PERISTOMAL SKIN INTACT, SUPPLIES PLACED AT BS RECOMMENDATIONS; CHANGE POUCH Q3-5 DAYS AND PRN, EMPTY PRN, RADHA CUT TO FIT SDE AWARE
--- NOTE | 2020-07-12 08:42 | EKG ---
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 : 1945 Requested By: Maya Garcia Order Number: [id number] MD: Camden Moe Measurements Intervals [place] Rate: 88 P: 207 DC: 227 QRS: 22 QRSD: 92 T: 202 QT: 392 QTc: 475 Interpretive Statements Sinus or ectopic atrial rhythm Prolonged DC interval Probable LVH with secondary repol abnrm No previous ECG available for comparison Electronically Signed On 07-12-2020 8:42:01 CDT by Camden Moe [email or web address] <ELECTRONICALLY SIGNED> By: Camden Moe MD, [facility] 07/12/20 0842 0746 07 Camden Moe MD, FACC /EPI
--- NOTE | 2020-07-12 10:18 | 2DMMODE ---
[facility] [place] [address] 2 D/M-MODE ECHOCARDIOGRAM Name: SHADI WRIGHT Room #: 201-P ADM IN M.R.#: [id number] Admission: 07/11/20 Attend Phys: Fausto Bello MD Discharge: Date of : 43 Report #: [id number] THIS REPORT FOR: cc: FAM - Family physician unknown FAM - Family physician unknown Tristen Callaway MD ~ APPROVED REPORT Study performed: 07/12/2020 09:05:44 EXAM: Comprehensive 2D, Doppler, and color-flow Echocardiogram Patient Location: Bedside Room #: 201 Status: routine BSA: 1.55 HR: 75 bpm BP: 153/70 mmHg Rhythm: NSR Other Information Study Quality: Good Indications Elevated troponin. 2D Dimensions RVDd: 34.80 mm IVSd: 15.00 (7-11mm) LVOT Diam: 19.89 (18-24mm) LVDd: 43.54 mm PWd: 13.00 (7-11mm) LVDs: 29.03 (25-40mm) Left Atrium: 31.16 (27-40mm) Aortic Root: 31.59 mm Volumes Left Atrial Volume (Systole) Single Plane 4CH: 52.71 mL Single Plane 2CH: 60.64 mL LA ESV Index: 39.00 mL/m2 Aortic Valve AoV Peak Willis.: 2.00 m/s AO Peak Gr.: 16.00 mmHg LVOT Max P.31 mmHg AO Mean Gr.: 8.00 mmHg AO V2 Mean: 1.30 m/s LVOT Max V: 1.15 m/s [facility] [address] [place] [place] [address] 2 D/M-MODE ECHOCARDIOGRAM Name: SHADI WRIGHT Room #: 201-P [facility] IN [facility]#: [id number] Admission: 07/11/20 Attend Phys: Fausto Bello MD Discharge: Date of : 43 Report #: [id number] AO V2 VTI: 35.13 cm LEONOR Vmax: 1.80 cm2 Mitral Valve E/A Ratio: 0.5 MV Decel. Time: 239.08 ms MV E Max Willis.: 0.58 m/s MV A Willis.: 1.11 m/s MV PHT: 69.33 ms IVRT: 71.51 ms Pulmonary Valve PV Peak Willis.: 1.11 m/s PV Peak Gr.: 4.94 mmHg Pulmonary Vein P Vein S: 0.48 m/s P Vein D: 0.28 m/s P Vein S/D Ratio: 1.71 Tricuspid Valve TR Peak Willis.: 2.70 m/s RAP Estimate: 5.00 mmHg TR Peak Gr.: 29.00 mmHg PA Pressure: 34.00 mmHg Left Ventricle The left ventricle is normal size. There is normal LV segmental wall motion. Mild concentric left ventricular hypertrophy. Left ventricular systolic function is normal. LVEF is 65%. Mild diastolic dysfunction is present (impaired relaxation pattern). Right Ventricle The right ventricle is normal size. The right ventricular systolic function is normal. Atria Left atrium is mildly dilated. The right atrium size is normal. Aortic Valve The aortic valve is not well visualized; leaflets appear mildly calcified. No aortic regurgitation is present. There is no aortic valvular stenosis. Mitral Valve The mitral valve is normal in structure. Mild mitral annular calcification. Trace mitral regurgitation. No evidence of mitral [facility] [address] [place] [address] 2 D/M-MODE ECHOCARDIOGRAM Name: SHADI WRIGHT Room #: 201-P [facility] IN .R.#: [id number] Admission: 07/11/20 Attend Phys: Fausto Bello MD Discharge: Date of : 43 Report #: [id number] valve stenosis. Tricuspid Valve The tricuspid valve is normal in structure. Mild tricuspid regurgitation. Estimated PAP is 35mmHg. Pulmonic Valve The pulmonary valve is normal in structure. There is no pulmonic valvular regurgitation. Great Vessels The aortic root is normal in size. Ascending aorta is not well visualized. IVC is normal in size and collapses >50% with inspiration. Pericardium There is no pericardial effusion. <Conclusion> The left ventricle is normal size. Mild concentric left ventricular hypertrophy. Left ventricular systolic function is normal. Mild diastolic dysfunction is present (impaired relaxation pattern). The right ventricle is normal size. Left atrium is mildly dilated. The aortic valve is not well visualized; leaflets appear mildly calcified. Trace mitral regurgitation. Mild tricuspid regurgitation. Estimated PAP is 35mmHg. <ELECTRONICALLY SIGNED> By: Tristen Callaway MD 07/12/20 1017 1017 1017 Tristen Callaway MD /INF
[2020-07-12 11:45] VITALS: BP 145/88
--- NOTE | 2020-07-12 12:33 | HC ---
[facility] [place] [address] CONSULTATION Name: SHADI WRIGHT Room #: 201- ADM IN M.R.#: [id number] Admission: 07/11/20 Attend Phys: Fausto Bello MD Discharge: Date of : 43 Report #: [id number] THIS REPORT FOR: cc: FAM - Family physician unknown FAM - Family physician unknown Tristen Callaway MD ~ DOC #: [id number] Tristen Callaway MD DATE OF SERVICE: 07/11/2020 CARDIOLOGY CONSULTATION INDICATIONS: Abnormal troponin level. HISTORY OF PRESENT ILLNESS: This is a 75-year-old female with recently diagnosed colon cancer, status post subtotal colectomy with end ileostomy, hypertension, chronic tobacco use, CVA, hypercholesterolemia and anemia, presenting with generalized weakness and vomiting. For the past few weeks, she has had intractable vomiting with decreased oral intake. She was evaluated in the ER at [facility] and noted to have acute kidney injury with a creatinine of 5.3 and potassium 6.8. She was transferred to [facility] for further treatment. A troponin level is 0.18. She denies any prior cardiac history. There is no history of chest pain or shortness of breath. PAST MEDICAL HISTORY: CVA with residual right-sided weakness, hypertension, hypercholesterolemia, colon cancer with recent surgery. ALLERGIES: FERUMOXYTOL. MEDICATIONS: Coreg 12.5 b.i.d., clonidine twice a day, Crestor 20 mg and iron tablets. SOCIAL HISTORY: At least 1-1/2-pack cigarette a day smoker per day. FAMILY HISTORY: Negative for premature CAD. REVIEW OF SYSTEMS: A full 10-point review of systems performed. Only the pertinent positives and negatives are described in the HPI. PHYSICAL EXAMINATION: VITAL SIGNS: Blood pressure is 130/70, heart rate is 80 beats per minute. GENERAL APPEARANCE: This is an elderly appearing female, appearing weak. HEENT: Normocephalic, atraumatic. Oral mucosa moist. NECK: Supple. LUNGS: Clear to auscultation. [facility] [address] [place] [address] CONSULTATION Name: SHADI WRIGHT Room #: [address] [place] [address] IN M.R.#: [id number] Admission: 07/11/20 Attend Phys: Fausto Bello MD Discharge: Date of : 43 Report #: [id number] CARDIAC: Regular rate and rhythm, S1, S2 positive. ABDOMEN: Soft, nontender. EXTREMITIES: No cyanosis, no edema. LABORATORY DATA: Troponin 0.18 x 2. Creatinine is 5.0, potassium is 5.0. ECG is sinus rhythm, first-degree AV block, LVH with probable repolarization abnormality. ASSESSMENT AND PLAN: 1. Positive troponin in the setting of acute kidney injury. She offers no complaints of angina or dyspnea. This may represent a false positive finding in the setting of acute kidney injury. However, given her age and risk factors, we will need to proceed with an ischemic evaluation once her creatinine has stabilized. 2. Generalized weakness/acute kidney injury, probably from dehydration/intractable vomiting/decreased p.o. intake. Fluid management as per Nephrology. 3. Hypertension. Agree with holding meds. 4. Hypercholesterolemia, statin medication. 5. Tobacco use, complete smoking cessation is advised. Tristen Callaway MD JP/ANJANA <ELECTRONICALLY SIGNED> By: Tristen Callaway MD 07/12/20 1233 [id number] [id number] Tristen Callaway MD /nt
--- NOTE | 2020-07-12 15:19 | NUR ---
Patient admits after recent dc June 21. Patient rec colectomy, new diagnosis colon cancer at time of prev dc. Patient reports she resides in independent apt at [facility]. Patient lives in [facility]. She has a walker she uses in apt and community. PCP Dr Brigitte Vance. At dc she was rec HH care with My[facility] CHRISTY. Plan resumption at ar. Sp with [facility] CHRISTY to alert patient is inpatient at [facility] and faxed clinical update. Casemgt following
[2020-07-12 16:00] VITALS: BP 150/85
--- NOTE | 2020-07-12 19:30 | NUR ---
PT IS AXOX4, WEAK, DENIES PAIN, HAS SOME NAUSEA. REFUSED RX ZOFRAN; ON CLEAR LIQUID DIET. VSS, AFEBRILE, SR ON MONITOR. PT TOLERATING CLEAR LIQUIDS. OSTOMY NURSE CHANGED ILEOSTOMY POUCH; SITE C/D/I, OSTOMY PINK AND MOIST. NEPRHO CONSULTED. POC IS TO CONTINUE FLUIDS, ASSESS LAB VALUES. PT/OT CONSULTED; CASE MGMT CONSULTED. FALL PRECAUTIONS IN PLACE. NO CONCERNS AT THIS TIME.
[2020-07-12 19:32] VITALS: BP 158/92
[2020-07-13 04:33] VITALS: BP 145/79
--- NOTE | 2020-07-13 04:34 | NUR ---
A/O X 4.REPOSITIONED Q2.TYLENOL GIVEN FOR SLEEP.ON LR IV.MONITOR SHOWS SR.POC CONTINUED.
[2020-07-13 05:12] LABS: ALBUMIN 2.6 g/dL (3.4-5.0); CALCIUM 8.5 mg/dL (8.5-10.1); PHOSPHORUS 3.7 mg/dL (2.5-4.9); POTASSIUM 3.9 mmol/L (3.5-5.1)
[2020-07-13 05:27] LABS: CREATININE 2.2 mg/dL (0.6-1.0)
[2020-07-13 11:05] VITALS: BP 140/65
[2020-07-13 16:45] VITALS: BP 150/88
--- NOTE | 2020-07-13 17:09 | NUR ---
asessment as charted - meds as per apr - given zofran for nausea with mod relief and tylenol for so's of abdo pain with good relief. stress stest completed along with abdo xray this afternoon. ate only small amount of breakfast and stated that it made her feel nauseated. placed back on full liquids for dinner. pt has been seen by phys therapy - up to chair this shift. pt to be seen by receiving specialist for high calorie nutrition diet for home. pt with no co's at the present time. appears to be resting comfortably at the present time
--- NOTE | 2020-07-13 17:51 | NUR ---
Therapy varianced today. Discussed with patient if beneficial for post acute care. Patient reports she does not want to go and will not go to skilled facility. her goal is home with resumption of home health care.
[2020-07-13 19:45] VITALS: BP 152/86
[2020-07-14 02:54] LABS: HEMATOCRIT 30.4 % (37.0-47.0); HEMOGLOBIN 10.1 gm/dL (12.0-15.0); MCH 30.1 pg (26.0-34.0); MCHC 33.3 g/dL (28.0-37.0); MCV 90.4 fL (80.0-100.0); RBC 3.36 mil/uL (4.20-5.00); RDW 14.4 % (10.5-14.5); WBC 5.3 thou/uL (4.0-11.0)
[2020-07-14 03:32] LABS: ALBUMIN 2.4 g/dL (3.4-5.0); CALCIUM 8.3 mg/dL (8.5-10.1); CREATININE 1.9 mg/dL (0.6-1.0); MAGNESIUM 1.1 mg/dL (1.8-2.4); PHOSPHORUS 3.5 mg/dL (2.6-4.7)
[2020-07-14 03:40] VITALS: BP 143/75
--- NOTE | 2020-07-14 05:07 | NUR ---
SLEPT MOST OF SHIFT. ASSIST UP TO COMODE NEEDED. VOIDING WITHOUT PROBLEMS PAST FONTANEZ DC. WORKING ON GOALS AND PLAN OF CARE FOR NOC. HAD ONE 10 BEAT RUN OF VT. K+ AND MG++ LOW AND CALLED TO ALISON CRAMER. ORDERS RECIEVED. CONTINUE TO KARIME JIANG. DENIES COMPLAINTS OF PAIN OR SHORTNESS OF AIR AT THIS TIME.
[2020-07-14 08:07] VITALS: BP 194/80
[2020-07-14 11:02] VITALS: BP 171/81
--- NOTE | 2020-07-14 13:16 | NUR ---
Met with patient and discussed post acute care. patient reports in May when she was at hospital she said insurance denied her skilled care. Patient prefers to return home but agreeable for referral to [facility]. Sp with admissions faxed referral for post acute care. Requested if they accept to submit for auth. Patient has had her covid vaccines.
[2020-07-14 15:39] VITALS: BP 131/62
--- NOTE | 2020-07-14 16:52 | NUR ---
ASSESSMENT CHARTED - MEDS PER APR - GIVEN TYLENOL FOR CO'S OF ABDO PAIN WITH MOD RELIEF - APPLIED HEATINH PAD TO ADBO WITH PATIENT STATES HAS HELPED WITH THE GAS PAIN. JOSE ALFREDO SMALL AMOUNTS OF DIET - FULL LIQUID. ELECTROLYTES REPLACED ORDERED - LAB FOR THE AM. AMBULATED IN THE HALLS WITH PHYS THERAPY - UP IN THE CHAIR FOR MOST OF THE DAY. NO CO'S OF NAUSEA. PATIENT REFUSED TO HAVE CARDIAC CATH DONE TOMORROW - STATED HER TIERD OLD BODY HAS BEEN THROUGH ENOUGH. PHYS THERAPY RECOMMENDS THAT PATIENT GO TO SNF - [facility] LOOKING INTO AVIALABILITY. NO CO'S AT THE PRESENT TIME - RESTING IN THE RECKINER WITH HER EYES CLOSED.
[2020-07-14 19:20] VITALS: BP 136/83
[2020-07-15] VITALS (7 sets, daily range): BP systolic 123–160; BP diastolic 61–85
--- NOTE | 2020-07-15 03:42 | NUR ---
SLEPT MOST OF SHIFT. NEEDS ENCOURAGMENT TO INCREASE ACTIVITY. UP TO BEDSIDE COMODE WITH STANDBY ASSIST. WORKING ON GOALS AND PLAN OF CARE FOR NOC. PROGRESSING SLOWLY TOWARDS GOALS FOR TRANSFER TO SKILLED. DENIES COMPLAINTS OF CHEST PAIN OR SHORTNESS OF AIR. CONTINUES TO HAVE ABDOMANAL GAS PAINS PER ILIOSTOMY. CONTINUE TO ASSES.
[2020-07-15 05:18] LABS: ALBUMIN 2.2 g/dL (3.4-5.0); CALCIUM 7.9 mg/dL (8.5-10.1); CREATININE 1.6 mg/dL (0.6-1.0); MAGNESIUM 2.3 mg/dL (1.8-2.4); PHOSPHORUS 3.1 mg/dL (2.5-4.9); POTASSIUM 4.3 mmol/L (3.5-5.1)
--- NOTE | 2020-07-15 11:03 | NUR ---
PT ALERT AND ORIENTED TIMES THREE. VSS, IVF INFUSING PER ORDER, SR ON TELE. PT DENIES PAIN/SOA AT THIS TIME. PT ILEOSTOMY INTACT. PT TOLERATES MEDS AND MEALS. PT WORKED WELL WITH PT/OT TODAY. PT FAMILY AT BEDSIDE. WILL CONTINUE TO MONITOR.
--- NOTE | 2020-07-15 11:10 | NUR ---
Additional clinical faxed to [employer] PAUL Downey to support snf auth request for dc to [facility] today. They have a bed and can accept. All parties updated. Dc later today once auth in place.
[2020-07-15] MEDS ORDERED: ADULT LOW DOSE81 MG PO (12:06)
[2020-07-15] MEDS ORDERED: ACETAMINOPHEN325 M1 PO (12:06)
[2020-07-15] MEDS ORDERED: PT HOME MEDICATION MISCELL (12:06)
[2020-07-15] MEDS ORDERED: NORVASC5 MG PO (12:06)
[2020-07-15] MEDS ORDERED: MAALOX ADVANCE355 ML PO (12:08)
[2020-07-15] MEDS ORDERED: PROTONIX 20 MG20 MG PO (12:08)
[2020-07-16 00:53] VITALS: BP 137/72
[2020-07-16 02:57] VITALS: BP 153/74
--- NOTE | 2020-07-16 03:50 | NUR ---
RECEIVED CARE OF THIS PATIENT AT 1900. PATIENT ALERT AND ORIENTED X4 WITH SOME PERIODS OF CONFUSION. PATIENT UP TO BATHROOM WITH ASSIST OF ONE AND WALKER. PATIENT WAS TAKEN TO THE BATHROOM BY NURSE. PATIENT AT THAT TIME WAS SBA ONLY WITH A FALL SCORE OF 35. PATIENT WAS TOLD TO PULL STRING WHEN DONE. NURSE WENT TO GET IV FLUIDS AND PAIN MED. PATIENT PULLED THE CORD BUT DID NOT WAIT FOR A NURSE TO COME AND HELP HER TO BED. SHE FELL TO THE FLOOR STATING THAT HER YELLOW SLIPPER SOCKS WERE ON CROOKED. SHE HAD NO APPARENT INJURIES. SAID SHE HAD NO PAIN. VS AND NEURO'S WERE WNL. THE HOSPITALIST AND FAMILY WERE NOTIFIED. PATIENT EDUCATED ABOUT THE IMPORTANCE OF CALLING FOR HELP AND WAITING FOR THAT HELP. C/O ABD PAIN, MED GIVEN FOR THIS. SLEPT OFF AND ON DURING NIGHT.
[2020-07-16 04:39] LABS: ALBUMIN 1.8 g/dL (3.4-5.0); CALCIUM 7.9 mg/dL (8.5-10.1); CREATININE 1.4 mg/dL (0.6-1.0)
[2020-07-16 07:30] VITALS: BP 179/78
[2020-07-16 08:05] VITALS: BP 179/78
--- NOTE | 2020-07-16 08:42 | NUR ---
OSTOMY CARE NOTE; AWAKE, ALERT, COOPERATIVE, POUCH ON 4 DAYS, CHANGED USING RADHA 2 PIECE SYSTEM CUT TO FIT, STOMA PINK VIABLE, BUDDED W/ LIQ BROWN STOOL, PERISTOMAL SKIN INTACT, ADAPT RING APPLIED UNDER WAFER, C/O NO APPETITE, SUPPLIES AT BS RECOMMENDATIONS; CHANGE POUCH Q 3-5 DAYS AND PRN, EMTPY PRN MARKET REPORTER AWARE
--- NOTE | 2020-07-16 11:24 | NUR ---
PER DR KAUR, DR SHEIKH APPROVED PT FOR SNF AFTER PEER TO PEER CALL. CM LFT FOR [place] [facility] [phone].
--- NOTE | 2020-07-16 12:04 | NUR ---
PT ALERT AND ORIENTED TIMES FOUR. VSS, IVF INFUSING PER ORDER. PT DENIES PAIN/SOA. PT TOLERATES MEDS, WITH DECREASED APPETITE. PT WORKED WELL WITH PT/OT UP SITTING IN THE CHAIR. PLANS FOR DISCHARGE TODAY AT 2PM.
[2020-07-16 12:13] VITALS: BP 135/76
--- NOTE | 2020-07-16 12:21 | NUR ---
[facility] S/W [place] FOR [facility] TO INFORMED OF INSUR AUTH. [place] ASKED [facility] TO ARRANGE TRANSPORTATION. [facility] SCHEDULED TRANSPORTATION THROUGH [facility], THE EARLIEST THEY CAN PICK PT UP IS AT 1600. [place], PT, PT'S DTR, [place], AND BEDSIDE NURSE ALL NOTIFIED OF PLAN. US AGREED TO MAKE CHART COPY. [facility] FAXED D/C ORDERS TO [place] AT [phone].
== END 2020-07-16 14:44 | DRG 280 ==
LOC: 2N 01:02
PROVIDERS: Hospitalist; Internal Medicine; Nurse Practitioner Acute Care; ADMIT Hospitalist; ATTEND Hospitalist
DX: I21.4 Non-ST elevation (NSTEMI) myocardial infarction (principal); E43 Unspecified severe protein-calorie malnutrition; N17.0 Acute kidney failure with tubular necrosis; E87.2 Acidosis; I69.351 Hemiplegia and hemiparesis following cerebral infarction affecting right dominant side; C18.9 Malignant neoplasm of colon, unspecified; E46 Unspecified protein-calorie malnutrition; E87.1 Hypo-osmolality and hyponatremia; N17.9 Acute kidney failure, unspecified; E78.00 Pure hypercholesterolemia, unspecified; F17.210 Nicotine dependence, cigarettes, uncomplicated; I71.4 Abdominal aortic aneurysm, without rupture; I73.9 Peripheral vascular disease, unspecified; Z60.2 Problems related to living alone; E86.0 Dehydration; R53.81 Other malaise; E83.42 Hypomagnesemia; E87.6 Hypokalemia; M81.0 Age-related osteoporosis without current pathological fracture; I12.9 Hypertensive chronic kidney disease with stage 1 through stage 4 chronic kidney disease, or unspecified chronic kidney disease; N18.9 Chronic kidney disease, unspecified; Z85.038 Personal history of other malignant neoplasm of large intestine; Z88.8 Allergy status to other drugs, medicaments and biological substances; Z71.6 Tobacco abuse counseling; Z90.49 Acquired absence of other specified parts of digestive tract; Z82.49 Family history of ischemic heart disease and other diseases of the circulatory system; Z68.28 Body mass index [BMI] 28.0-28.9, adult; Z93.2 Ileostomy status; Z90.710 Acquired absence of both cervix and uterus; Z79.82 Long term (current) use of aspirin; Z79.899 Other long term (current) drug therapy
CPT/HCPCS: 10081